=== PATIENT | male | born 1950 | race Caucasian/White ===

== ENCOUNTER 2018-05-29 10:46 | Outpatient (REF) | payer MEDICARE, SELFPAY ==
[2018-05-29 19:41] LABS: HCT 45.7 % (40.0-50.0); HGB 16.5 g/dL (13.5-17.5); Mean Corp. HGB Concentration 36.1 g/dL (32.0-36.0); Mean Corpuscular Hemoglobin 34.2 pg (27.0-33.0); Mean Corpuscular Volume 94.6 fL (80-95); Mean Platelet Volume 11.8 fL (8.0-11.0); Platelet Count 129 x1000/uL (130-400); RBC 4.83 m/cumm (4.50-6.00); RBC Distribution Width 13.7 % (11.8-14.1); White Blood Cell Count 8.11 k/cumm (4.4-10.8)
[2018-05-29 20:00] LABS: ALT 23 U/L (12-78); AST 13 U/L (15-37); Alkaline Phosphatase 102 U/L (46-116); Anion Gap 10.3 mmol/L (3-11); BUN 18 mg/dL (7-18); Bilirubin, Total 0.4 mg/dL (0.2-1.0); CO2 24.7 mmol/L (21.0-32.0); CREATININE 1.12 mg/dL (0.70-1.30); Calcium 8.7 mg/dL (8.5-10.1); Chloride 107 mmol/L (98-107); Ferritin 68 ng/mL (8-388); Glucose 107 mg/dL (70-100); Potassium 4.2 mmol/L (3.5-5.1); Sodium 142 mmol/L (136-145); Total Protein 6.7 g/dL (6.4-8.2)
== END 2018-05-29 10:47 ==
LOC: NCHCN 10:46
PROVIDERS: PCP Internal Medicine; Visit Provider Internal Medicine
DX: E83.119 Hemochromatosis, unspecified (principal); G40.209 Localization-related (focal) (partial) symptomatic epilepsy and epileptic syndromes with complex partial seizures, not intractable, without status epilepticus; S06.9X9S Unspecified intracranial injury with loss of consciousness of unspecified duration, sequela; Z51.81 Encounter for therapeutic drug level monitoring; Z79.899 Other long term (current) drug therapy
CPT/HCPCS: 80053; 85027; 80184; 80339; 82728; 85025; 86618

== ENCOUNTER 2018-05-29 10:51 | Outpatient (REF) | payer MEDICARE, SELFPAY ==
[2018-05-29 19:45] LABS: PHENOBARBITAL 7.2 ug/mL (15.0-40.0)
[2018-05-31 12:56] LABS: Lyme Ab w Rflx to Lyme Confirm Negative
[2018-06-01 11:43] LABS: Lacosamide 7.4 mcg/mL (1.0 - 10.0)
== END 2018-05-29 10:52 ==
LOC: LBN 10:51
PROVIDERS: PCP Internal Medicine; Visit Provider Psychiatry & Neurology Neurology
DX: G40.919 Epilepsy, unspecified, intractable, without status epilepticus (principal); S06.9X9S Unspecified intracranial injury with loss of consciousness of unspecified duration, sequela; Z51.81 Encounter for therapeutic drug level monitoring; Z79.899 Other long term (current) drug therapy
CPT/HCPCS: 80053; 80184; 80339; 85025; 86618

== ENCOUNTER 2018-08-08 08:41 | Outpatient (REF) | payer MEDICARE, SELFPAY ==
[2018-08-08 21:49] LABS: HCT 43.6 % (40.0-50.0); HGB 15.8 g/dL (13.5-17.5); Mean Corp. HGB Concentration 36.2 g/dL (32.0-36.0); Mean Corpuscular Hemoglobin 36.4 pg (27.0-33.0); Mean Corpuscular Volume 100.5 fL (80-95); Mean Platelet Volume 12.1 fL (8.0-11.0); Platelet Count 129 x1000/uL (130-400); RBC 4.34 m/cumm (4.50-6.00); RBC Distribution Width 13.1 % (11.8-14.1); White Blood Cell Count 7.39 k/cumm (4.4-10.8)
[2018-08-08 22:24] LABS: ALT 21 U/L (12-78); AST 12 U/L (15-37); Albumin 3.9 g/dL (3.4-5.0); Alkaline Phosphatase 113 U/L (46-116); Anion Gap 9.6 mmol/L (3-11); BUN 14 mg/dL (7-18); Bilirubin, Total 0.4 mg/dL (0.2-1.0); CO2 26.4 mmol/L (21.0-32.0); CREATININE 1.03 mg/dL (0.70-1.30); Calcium 8.8 mg/dL (8.5-10.1); Chloride 109 mmol/L (98-107); Glucose 109 mg/dL (70-100); PHENOBARBITAL 11.4 ug/mL (15.0-40.0); Potassium 4.3 mmol/L (3.5-5.1); Sodium 145 mmol/L (136-145); TSH 1.29 uIU/mL (0.358-3.74); Total Protein 6.5 g/dL (6.4-8.2); Vitamin B12 474 pg/mL (193-986)
[2018-08-08 22:32] LABS: Hemoglobin A1C 5.4 % (4.5-6.2)
[2018-08-09 18:49] LABS: Ferritin 105 ng/mL (8-388)
[2018-08-10 12:38] LABS: Albumin 66.8 % (55.8-66.1); Total Protein 6.3 g/dl (6.3-8.2)
[2018-08-13 10:48] LABS: Lacosamide 6.8 mcg/mL (1.0 - 10.0)
== END 2018-08-08 09:01 ==
LOC: NCHCN 08:41
PROVIDERS: PCP Internal Medicine; Visit Provider Internal Medicine
DX: G40.209 Localization-related (focal) (partial) symptomatic epilepsy and epileptic syndromes with complex partial seizures, not intractable, without status epilepticus (principal); Z51.81 Encounter for therapeutic drug level monitoring; Z79.899 Other long term (current) drug therapy; N40.0 Benign prostatic hyperplasia without lower urinary tract symptoms; D61.818 Other pancytopenia; G62.9 Polyneuropathy, unspecified; Z87.820 Personal history of traumatic brain injury; Z12.5 Encounter for screening for malignant neoplasm of prostate; E83.119 Hemochromatosis, unspecified
CPT/HCPCS: 80053; 84153; 85027; 80184; 80339; 82607; 82728; 83036; 84165; 84443

== ENCOUNTER 2018-12-26 08:31 | Outpatient (REF) | payer MEDICARE, SELFPAY ==
[2018-12-26 21:11] LABS: Abs Immature Grans 0.08 k/cumm (0.0-0.09); Absolute Basophil Count 0.02 k/cumm (0.0-0.2); Absolute Eosinophil Count 0.21 k/cumm (0.0-0.7); Absolute Lymphocyte Count 1.84 k/cumm (1.2-3.4); Absolute Monocyte Count 1.01 k/cumm (0.11-0.7); Absolute Neutrophil Count 5.32 k/cumm (1.2-6.7); Basophils % 0.2; Eosinophils % 2.5; HCT 45.2 % (40.0-50.0); HGB 15.6 g/dL (13.5-17.5); Immature Grans % 0.9; Lymphocytes % 21.7; Mean Corp. HGB Concentration 34.5 g/dL (32.0-36.0); Mean Corpuscular Hemoglobin 34.7 pg (27.0-33.0); Mean Corpuscular Volume 100.7 fL (80-95); Monocytes % 11.9; Neutrophils % 62.8; Platelet Count 137 x1000/uL (130-400); RBC 4.49 m/cumm (4.50-6.00); RBC Distribution Width 12.9 % (11.8-14.1); White Blood Cell Count 8.48 k/cumm (4.4-10.8)
[2018-12-26 21:28] LABS: ALT 20 U/L (12-78); AST 13 U/L (15-37); Albumin 4.1 g/dL (3.4-5.0); Alkaline Phosphatase 114 U/L (46-116); BUN 16 mg/dL (7-18); Bilirubin, Total 0.4 mg/dL (0.2-1.0); CREATININE 0.98 mg/dL (0.70-1.30); Calcium 8.6 mg/dL (8.5-10.1); Chloride 107 mmol/L (98-107); Ferritin 127 ng/mL (8-388); Glucose 106 mg/dL (70-100); PHENOBARBITAL 11.8 ug/mL (15.0-40.0); Potassium 4.1 mmol/L (3.5-5.1); Sodium 142 mmol/L (136-145); Total Protein 6.7 g/dL (6.4-8.2)
[2018-12-28 12:46] LABS: Albumin 67.4 % (55.8-66.1); Total Protein 6.6 g/dl (6.3-8.2)
[2018-12-30 07:08] LABS: Lacosamide 7.9 mcg/mL (1.0 - 10.0)
== END 2018-12-26 08:51 ==
LOC: NCHCN 08:31
PROVIDERS: PCP Internal Medicine; Visit Provider Internal Medicine
DX: E83.119 Hemochromatosis, unspecified (principal); G60.9 Hereditary and idiopathic neuropathy, unspecified; Z51.81 Encounter for therapeutic drug level monitoring; Z79.899 Other long term (current) drug therapy; G40.209 Localization-related (focal) (partial) symptomatic epilepsy and epileptic syndromes with complex partial seizures, not intractable, without status epilepticus
CPT/HCPCS: 80053; 80184; 80339; 82728; 84165; 85025

== ENCOUNTER 2019-04-24 09:07 | Outpatient (REF) | payer MEDICARE, SELFPAY ==
[2019-04-24 19:13] LABS: PHENOBARBITAL 11.1 ug/mL (15.0-40.0)
[2019-04-27 18:45] LABS: Lacosamide 7.7 mcg/mL (1.0 - 10.0)
[2019-04-30 12:27] LABS: Testosterone, Free 7.95 ng/dL (3.47-13.0); Testosterone, Total 568 ng/dL (240-950)
== END 2019-04-24 09:27 ==
LOC: NCHCN 09:07
PROVIDERS: PCP Internal Medicine; Visit Provider Internal Medicine
DX: G40.919 Epilepsy, unspecified, intractable, without status epilepticus (principal); S06.9X9S Unspecified intracranial injury with loss of consciousness of unspecified duration, sequela; Z51.81 Encounter for therapeutic drug level monitoring; Z79.899 Other long term (current) drug therapy; G40.209 Localization-related (focal) (partial) symptomatic epilepsy and epileptic syndromes with complex partial seizures, not intractable, without status epilepticus
CPT/HCPCS: 84402; 84403; 80184; 80339

== ENCOUNTER 2019-05-27 16:29 | Outpatient (REF) | payer MEDICARE, SELFPAY ==
[2019-05-27 19:00] LABS: Abs Immature Grans 0.07 k/cumm (0.0-0.09); Absolute Basophil Count 0.02 k/cumm (0.0-0.2); Absolute Lymphocyte Count 2.38 k/cumm (1.2-3.4); Absolute Monocyte Count 0.86 k/cumm (0.11-0.7); Absolute Neutrophil Count 5.13 k/cumm (1.2-6.7); Basophils % 0.2; Eosinophils % 3.4; HCT 45.2 % (40.0-50.0); HGB 15.6 g/dL (13.5-17.5); Immature Grans % 0.8; Lymphocytes % 27.2; Mean Corp. HGB Concentration 34.5 g/dL (32.0-36.0); Mean Corpuscular Hemoglobin 35.2 pg (27.0-33.0); Mean Platelet Volume 11.8 fL (8.0-11.0); Monocytes % 9.8; Neutrophils % 58.6; Platelet Count 143 x1000/uL (130-400); RBC 4.43 m/cumm (4.50-6.00); RBC Distribution Width 13.1 % (11.8-14.1); White Blood Cell Count 8.76 k/cumm (4.4-10.8)
[2019-05-27 19:05] LABS: INR 0.9 (0.9-1.1); Prothrombin Time 9.1 sec (9.3-11.0)
== END 2019-05-27 16:49 ==
LOC: NCHCN 16:29
PROVIDERS: PCP Internal Medicine; Visit Provider Internal Medicine
DX: R23.3 Spontaneous ecchymoses (principal); D61.818 Other pancytopenia
CPT/HCPCS: 85025; 85610; 85730

== ENCOUNTER 2019-08-14 20:12 | Outpatient (REF) | payer MEDICARE, SELFPAY ==
[2019-08-14 20:04] LABS: Abs Immature Grans 0.05 k/cumm (0.0-0.09); HCT 43.9 % (40.0-50.0); HGB 15.4 g/dL (13.5-17.5); Mean Corp. HGB Concentration 35.1 g/dL (32.0-36.0); Mean Corpuscular Volume 102.6 fL (80-95); Mean Platelet Volume 11.6 fL (8.0-11.0); Platelet Count 155 x1000/uL (130-400); RBC 4.28 m/cumm (4.50-6.00); RBC Distribution Width 12.7 % (11.8-14.1); White Blood Cell Count 8.94 k/cumm (4.4-10.8)
[2019-08-14 20:30] LABS: ALT 24 U/L (16-63); AST 13 U/L (15-37); Albumin 3.6 g/dL (3.4-5.0); Alkaline Phosphatase 107 U/L (46-116); Anion Gap 9.6 mmol/L (3-11); BUN 13 mg/dL (7-18); Bilirubin, Total 0.3 mg/dL (0.2-1.0); CO2 28.4 mmol/L (21.0-32.0); CREATININE 0.94 mg/dL (0.70-1.30); Calcium 8.6 mg/dL (8.5-10.1); Chloride 106 mmol/L (98-107); Glucose 106 mg/dL (70-100); PHENOBARBITAL 14.7 ug/mL (15.0-40.0); Potassium 3.9 mmol/L (3.5-5.1); Sodium 144 mmol/L (136-145); Total Protein 6.3 g/dL (6.4-8.2)
[2019-08-14 20:32] LABS: Absolute Eosinophil Count 0.27 k/cumm (0.0-0.7); Absolute Lymphocyte Count 1.16 k/cumm (1.2-3.4); Absolute Monocyte Count 1.61 k/cumm (0.11-0.7); Atypical Lymphocytes % 9; Diff Comment Manual Differential; RBC Morphology Normal
[2019-08-18 10:05] LABS: Lacosamide 7.7 mcg/mL (1.0 - 10.0)
== END 2019-08-14 20:32 ==
LOC: NCHCN 20:12
PROVIDERS: PCP Internal Medicine; Visit Provider Internal Medicine
DX: G40.209 Localization-related (focal) (partial) symptomatic epilepsy and epileptic syndromes with complex partial seizures, not intractable, without status epilepticus (principal); E83.119 Hemochromatosis, unspecified; Z51.81 Encounter for therapeutic drug level monitoring; Z79.899 Other long term (current) drug therapy
CPT/HCPCS: 80053; 80184; 80339; 85025

== ENCOUNTER 2019-12-02 20:38 | Outpatient (REF) | payer MEDICARE, SELFPAY ==
[2019-12-02 19:37] LABS: HCT 47.9 % (40.0-50.0); HGB 16.7 g/dL (13.5-17.5); Mean Corp. HGB Concentration 34.9 g/dL (32.0-36.0); Mean Corpuscular Hemoglobin 35.5 pg (27.0-33.0); Mean Corpuscular Volume 101.9 fL (80-95); Mean Platelet Volume 12.2 fL (8.0-11.0); Platelet Count 162 x1000/uL (130-400); RBC Distribution Width 12.7 % (11.8-14.1); White Blood Cell Count 9.53 k/cumm (4.4-10.8)
[2019-12-02 19:57] LABS: ALT 24 U/L (16-63); AST 16 U/L (15-37); Alkaline Phosphatase 117 U/L (46-116); Anion Gap 11.7 mmol/L (3-11); BUN 14 mg/dL (7-18); Bilirubin, Total 0.4 mg/dL (0.2-1.0); CO2 25.3 mmol/L (21.0-32.0); CREATININE 0.94 mg/dL (0.70-1.30); Calcium 8.8 mg/dL (8.5-10.1); Chloride 106 mmol/L (98-107); Ferritin 214 ng/mL (26-388); Glucose 104 mg/dL (74-106); PHENOBARBITAL 20.1 ug/mL (15.0-40.0); Potassium 4.2 mmol/L (3.5-5.1); Sodium 143 mmol/L (136-145); Total Protein 6.5 g/dL (6.4-8.2)
== END 2019-12-02 20:58 ==
LOC: NCHCN 20:38
PROVIDERS: PCP Internal Medicine; Visit Provider Internal Medicine
DX: E83.119 Hemochromatosis, unspecified (principal); D61.818 Other pancytopenia; G40.209 Localization-related (focal) (partial) symptomatic epilepsy and epileptic syndromes with complex partial seizures, not intractable, without status epilepticus; R05 Cough; N40.0 Benign prostatic hyperplasia without lower urinary tract symptoms; Z51.81 Encounter for therapeutic drug level monitoring
CPT/HCPCS: 80053; 85027; 80184; 82728

== ENCOUNTER 2020-03-24 09:59 | Outpatient (REF) | payer MEDICARE, SELFPAY ==
[2020-03-24 20:07] LABS: ALT 29 U/L (16-63); AST 16 U/L (15-37); Albumin 3.9 g/dL (3.4-5.0); Alkaline Phosphatase 106 U/L (46-116); Anion Gap 6.2 mmol/L (3-11); BUN 16 mg/dL (7-18); Bilirubin, Total 0.4 mg/dL (0.2-1.0); CO2 24.8 mmol/L (21.0-32.0); CREATININE 0.95 mg/dL (0.70-1.30); Calcium 8.7 mg/dL (8.5-10.1); Chloride 108 mmol/L (98-107); Ferritin 226 ng/mL (26-388); Glucose 110 mg/dL (74-106); PHENOBARBITAL 18.6 ug/mL (15.0-40.0); Potassium 4.1 mmol/L (3.5-5.1); Sodium 139 mmol/L (136-145); Total Protein 6.4 g/dL (6.4-8.2)
[2020-03-24 20:21] LABS: Abs Immature Grans 0.07 k/cumm (0.0-0.09); Absolute Basophil Count 0.02 k/cumm (0.0-0.2); Absolute Eosinophil Count 0.32 k/cumm (0.0-0.7); Absolute Lymphocyte Count 1.97 k/cumm (1.2-3.4); Absolute Monocyte Count 0.88 k/cumm (0.11-0.7); Absolute Neutrophil Count 4.38 k/cumm (1.2-6.7); Basophils % 0.3; Eosinophils % 4.2; HCT 45.1 % (40.0-50.0); HGB 15.6 g/dL (13.5-17.5); Immature Grans % 0.9 %; Lymphocytes % 25.8; Mean Corp. HGB Concentration 34.6 g/dL (32.0-36.0); Mean Corpuscular Hemoglobin 35.2 pg (27.0-33.0); Mean Corpuscular Volume 101.8 fL (80-95); Mean Platelet Volume 11.9 fL (8.0-11.0); Monocytes % 11.5; Neutrophils % 57.3; Platelet Count 139 x1000/uL (130-400); RBC 4.43 m/cumm (4.50-6.00); RBC Distribution Width 12.2 % (11.8-14.1); White Blood Cell Count 7.64 k/cumm (4.4-10.8)
[2020-03-27 11:02] LABS: Lacosamide 6.3 mcg/mL (1.0 - 10.0)
== END 2020-03-24 10:19 ==
LOC: NCHCN 09:59
PROVIDERS: PCP Internal Medicine; Visit Provider Internal Medicine
DX: E83.119 Hemochromatosis, unspecified (principal); R23.3 Spontaneous ecchymoses; G40.209 Localization-related (focal) (partial) symptomatic epilepsy and epileptic syndromes with complex partial seizures, not intractable, without status epilepticus; Z51.81 Encounter for therapeutic drug level monitoring; Z79.899 Other long term (current) drug therapy
CPT/HCPCS: 80053; 80184; 80339; 82728; 85025

== ENCOUNTER 2020-11-06 08:27 | Outpatient (REF) | payer MEDICARE, SELFPAY ==
[2020-11-07 23:51] LABS: Lacosamide 5.8 mcg/mL (1.0 - 10.0)
== END 2020-11-06 08:47 ==
LOC: LBN 08:27
PROVIDERS: PCP Internal Medicine; Visit Provider Student in an Organized Health Care Education/Training Program
DX: G40.919 Epilepsy, unspecified, intractable, without status epilepticus (principal); S06.9X9S Unspecified intracranial injury with loss of consciousness of unspecified duration, sequela; Z51.81 Encounter for therapeutic drug level monitoring
CPT/HCPCS: 80235

== ENCOUNTER 2021-07-21 15:00 | Outpatient (REF) | payer MEDICARE, SELFPAY ==
[2021-07-21 20:57] LABS: HCT 47.1 % (40.0-50.0); HGB 16.2 g/dL (13.5-17.5); MCH 36.2 pg (27.0-33.0); MCHC 34.4 % (32.0-36.0); MCV 105.4 fL (80-95); MPV 12.1 fL (8.0-11.0); Platelet Count 135 10^3/uL (130-400); RBC 4.47 10^6/uL (4.36-5.78); RDW 12.1 % (11.8-14.1); RDW-SD 47.9 fL; WBC 9.15 10^3/uL (4.4-10.8)
[2021-07-21 21:39] LABS: Ferritin 220 ng/mL (26-388)
== END 2021-07-21 15:01 | disposition home or self-care (01) ==
LOC: NCHCN 15:00
PROVIDERS: PCP Internal Medicine; Visit Provider Internal Medicine
DX: E83.119 Hemochromatosis, unspecified (principal); J44.9 Chronic obstructive pulmonary disease, unspecified
CPT/HCPCS: 85027; 82728